=== PATIENT | female | born 1985 | race Caucasian/White ===

== ENCOUNTER 2016-11-18 08:05 | Emergency (ER) | payer SELFPAY ==
[~2016-11-18] VITALS: Ht 160 cm; Wt 56.7 kg
== END 2016-11-18 10:00 | disposition home or self-care (01) ==
LOC: CFTX 08:05 → CED 08:05 → CFTX 09:57
DX: T16.2XXA Foreign body in left ear, initial encounter (principal); F17.200 Nicotine dependence, unspecified, uncomplicated; X58.XXXA Exposure to other specified factors, initial encounter; Y92.9 Unspecified place or not applicable
CPT/HCPCS: 69200; 99282